=== PATIENT | female | born 1975 | race Caucasian/White ===

== ENCOUNTER 2016-12-16 14:03 | Emergency (ER) | payer OTHER ==
[2016-12-16 15:57] VITALS: BP 119/67
--- NOTE | 2016-12-16 16:15 | UC ---
Throat Pain/Nasal Nirav HPI - HPI Summary HPI Summary: ONE WEEK OF SINUS PRESSURE PAIN. HAD FLU TWO WEEKS AGO AND SINUS CONGESTION NEVER WENT AWAY. NO FEVER. PRODUCTIVE COUGH. - History of Current Complaint Chief Complaint: UCRespiratory Stated Complaint: SINUS ISSUE Time Seen by Provider: 12/16/16 15:54 Hx Obtained From: Patient Hx Last Menstrual Period: 12/16/16 Onset/Duration: Gradual Onset, Lasting Weeks, Still Present Cough: Productive Associated Signs & Symptoms: Positive: Sinus Discomfort, Nasal Discharge - Allergies/Home Medications Allergies/Adverse Reactions: Allergies Allergy/AdvReac Type Severity Reaction Status Date / Time No Known Allergies Allergy Verified 12/16/16 15:52 Home Medications: Home Medications Contol Med 1 tab DAILY 12/16/16 [History] Verapamil TAB* [[place] TAB*] 1 tab BID 12/16/16 [History Confirmed 12/16/16] PMH/Surg Hx/FS Hx/Imm Hx Previously Healthy: Yes Endocrine History Of: Reports: Thyroid Disease Denies: Diabetes Cardiovascular History Of: Denies: Hypertension, Pacemaker/ICD GI/ History Of: Denies: Renal Disease Cancer History Of: Denies: Breast Cancer - Surgical History Surgical History: Yes Surgery Procedure, Year, and Place: Corrective Urethra. Appendectomy. Tonsillectomy. C SECTION - Family History Known Family History: Negative: Respiratory Disease - Social History Occupation: Employed Full-time Lives: With Family Alcohol Use: Occasionally Substance Use Type: None Smoking Status (MU): Never Smoked Tobacco - Immunization History Most Recent Influenza Vaccination: Unk Review of Systems Constitutional: Negative Skin: Negative Eyes: Negative ENT: Nasal Discharge Respiratory: Cough Cardiovascular: Negative Gastrointestinal: Negative Genitourinary: Negative Motor: Negative Neurovascular: Negative Musculoskeletal: Negative Neurological: Negative Psychological: Negative All Other Systems Reviewed And Are Negative: Yes Physical Exam Triage Information Reviewed: Yes Appearance: Well-Appearing, No Pain Distress, Well-Nourished Vital Signs: Initial Vital Signs Temp 98 F 12/16/16 15:54 Pulse 60 12/16/16 15:54 Resp 18 12/16/16 15:54 BP 119/67 12/16/16 15:54 Pulse Ox 99 12/16/16 15:54 Vital Signs Reviewed: Yes Eye Exam: Normal Eyes: Positive: Conjunctiva Clear ENT: Positive: Hearing grossly normal, Pharynx normal, TM bulging, TM dull Dental Exam: Normal Neck exam: Normal Respiratory Exam: Normal Respiratory: Positive: Chest non-tender, Lungs clear, Normal breath sounds, No respiratory distress Cardiovascular Exam: Normal Cardiovascular: Positive: RRR, No Murmur, Pulses Normal Abdominal Exam: Normal Abdomen Description: Positive: Nontender, No Organomegaly Musculoskeletal Exam: Normal Musculoskeletal: Positive: Strength Intact, ROM Intact Neurological Exam: Normal Psychological Exam: Normal Psychological: Positive: Normal Response To Family Skin Exam: Normal Throat Pain/Nasal Course/Dx - Differential Dx/Diagnosis Differential Diagnosis/HQI/PQRI: Pharyngitis, Sinusitis, Tonsillitis, URI Provider Diagnoses: SINUSITIS Discharge - Discharge Plan Condition: Stable Disposition: HOME Prescriptions: Amoxicillin/Clavulanate TAB* [Augmentin TAB 875*] 875 mg PO BID #20 tab Fluconazole 150 MG (NF) [Diflucan 150 mg (NF)] 150 mg PO ONCE #1 tab Patient Education Materials: Sinusitis (ED) Referrals: Ray Cameron MD [Primary Care Provider] -
== END 2016-12-16 16:12 | disposition home or self-care (01) ==
LOC: UCEAST 14:03
DX: J32.9 Chronic sinusitis, unspecified (principal)
CPT/HCPCS: 99212; G0463

== ENCOUNTER 2019-02-04 13:23 | Emergency (ER) | payer OTHER ==
[2019-02-04 14:40] VITALS: BP 126/81
[2019-02-04] MEDS ORDERED: HYDROcodone/ACETAMIN 5-325 MG* 1 TAB PO ONE (16:32)
[2019-02-04] MEDS ORDERED: Ondansetron ODT TAB* 4 MG PO ONE (16:32)
--- NOTE | 2019-02-04 16:32 | UC ---
Abdominal Pain Female HPI - HPI Summary HPI Summary: 43-year-old woman comes in with a chief complaint of left flank and left abdominal pain. Pain started sudden onset yesterday while walking. Denies any trauma. Pain is quite severe. She was seen here yesterday he had a CT of her abdomen and pelvis which did not show any kidney stones or any acute process. Her urine did have some leukocytes in and she went home on ciprofloxacin she's taken 3 doses of that. Pain is now worse it's moving down into the left side of the abdomen. She says the pain feels like period cramps. Has not had a bowel movement for 2 days no dysuria. Urine culture came back with no growth. No measured fevers with the patient having chills she's actually shaking during the examination and history. Pain is worsened with some positions and slightly better was other positions. She has had a history of sciatica in the past but she has no radiation of the pain down the leg today. She's had an appendectomy. She's also had a bladder surgery when she was very young. She's had a . - History of Current Complaint Chief Complaint: UCGU Stated Complaint: LOWER BACK PAIN Time Seen by Provider: 02/04/19 15:57 Hx Last Menstrual Period: 01/22/19 Pain Intensity: 8 Allergies/Adverse Reactions: Allergies Allergy/AdvReac Type Severity Reaction Status Date / Time No Known Allergies Allergy Verified 02/04/19 14:40 PMH/Surg Hx/FS Hx/Imm Hx Previously Healthy: Yes Endocrine History: Hypothyroidism - Surgical History Surgical History: Yes Surgery Procedure, Year, and Place: Corrective Urethra. Appendectomy. Tonsillectomy. C SECTION - Family History Known Family History: Negative: Respiratory Disease - Social History Alcohol Use: Occasionally Substance Use Type: None Smoking Status (MU): Never Smoked Tobacco - Immunization History Most Recent Influenza Vaccination: Unk Review of Systems All Other Systems Reviewed And Are Negative: Yes Constitutional: Positive: Chills Skin: Positive: Negative Eyes: Positive: Negative ENT: Positive: Negative Respiratory: Positive: Negative Cardiovascular: Positive: Negative Gastrointestinal: Positive: Abdominal Pain Genitourinary: Positive: Negative Motor: Positive: Negative Neurovascular: Positive: Negative Musculoskeletal: Positive: Negative Neurological: Positive: Negative Psychological: Positive: Negative Is Patient Immunocompromised?: No Physical Exam Triage Information Reviewed: Yes Appearance: Well-Nourished, Ill-Appearing, Pain Distress - MILD/MODERATE Vital Signs: Initial Vital Signs Temp 97.8 F 02/04/19 14:35 Pulse 69 02/04/19 14:35 Resp 16 02/04/19 14:35 BP 126/81 02/04/19 14:35 Pulse Ox 99 02/04/19 14:35 Vital Signs Reviewed: Yes Eye Exam: Normal Eyes: Positive: Conjunctiva Clear Neck: Positive: Supple Respiratory: Positive: Lungs clear, Normal breath sounds, No respiratory distress Cardiovascular: Positive: RRR Abdomen Description: Positive: CVA Tenderness (L), Other: - LEFT ABD TENDER TO PALPATION Bowel Sounds: Positive: Present Musculoskeletal Exam: Normal Musculoskeletal: Positive: Strength Intact, ROM Intact Neurological Exam: Normal Neurological: Positive: Alert, Muscle Tone Normal Psychological Exam: Normal Psychological: Positive: Normal Response To Family, Age Appropriate Behavior Skin Exam: Normal Abd Pain Female Course/Dx - Course Course Of Treatment: The patient's left flank pain has worsened since yesterday. She is also having left-sided abdominal pain. She's having chills. At this time and clinic because I do not have timely labs and adequate pain control for the patient I recommended going to the emergency department for further evaluation and care. They plan to go by POV. Here in clinic it we gave her a [place] and a Tab. - Differential Dx/Diagnosis Provider Diagnosis: Left flank pain, Left sided abdominal pain Discharge - Sign-Out/Discharge Documenting (check all that apply): Patient Departure All imaging exams completed and their final reports reviewed: No Studies - Discharge Plan Condition: Stable Disposition: HOME-RECOMMEND TO ED Referrals: Ray Cameron MD [Primary Care Provider] - Additional Instructions: GO DIRECTLY TO THE EMERGENCY DEPARTMENT FOR FURTHER EVALUATION. - Billing Disposition and Condition Condition: STABLE Disposition: Home-Recommend to ED
== END 2019-02-04 16:50 | disposition home health service (06) ==
LOC: UCEAST 13:23
DX: R10.9 Unspecified abdominal pain (principal)
CPT/HCPCS: 99212; A9270-GY; G0463

== ENCOUNTER 2019-02-04 17:06 | Emergency (ER) | payer OTHER ==
[2019-02-04 17:35] LABS: Urine Appearance Cloudy; Urine Bacteria 3+ (Absent); Urine Bilirubin Negative (Negative); Urine Blood 1+ (Negative); Urine Color Yellow; Urine Glucose Negative (Negative); Urine Ketones 1+ (Negative); Urine Nitrite Negative (Negative); Urine Protein Negative (Negative); Urine Red Blood Cell 3+(>10/hpf) (Absent); Urine Specific Gravity 1.016 (1.010-1.030); Urine Squamous Epithelial Cell Present (Absent); Urine Urobilinogen Negative (Negative); Urine White Blood Cell 3+(>20/hpf) (Absent)
[2019-02-04 20:38] LABS: ABS Basophils 0 10^3/ul (0-0.2); ABS Eosinophils 0.1 10^3/ul (0-0.6); ABS Monocytes 0.5 10^3/ul (0-0.8); ABS Neutrophils 3.6 10^3/ul (1.5-7.7); ABS Nucleated RBC 0 10^3/ul; Hematocrit 40 % (33-41); Hemoglobin 13.9 g/dL (12.0-16.0); Lymphocyte % 32.5 %; Mean Corpuscular HGB Conc 35 g/dL (31-36); Mean Corpuscular Hemoglobin 33 pg (27-31); Mean Corpuscular Volume 96 fL (80-97); Mean Platelet Volume 7.6 fL (7.4-10.4); Nucleated Red Blood Cells % 0.1; Platelet Count 278 10^3/uL (150-450); Red Blood Count 4.17 10^6 /uL (3.70-4.87); Red Cell Distribution Width 12 % (10.5-15); White Blood Count 6.2 10^3/uL (3.5-10.8)
[2019-02-04 20:55] LABS: ALT 11 U/L (7-52); AST 14 U/L (13-39); Albumin 4.2 g/dL (3.2-5.2); Albumin/Globulin Ratio 1.7 (1-3); Alkaline Phosphatase 28 U/L (34-104); Anion Gap 7 mmol/L (2-11); BUN/Creatinine Ratio 11.8 (8-20); Blood Urea Nitrogen 10 mg/dL (6-24); C Reactive Protein < 1.00 mg/L (<8.01); CO2 Carbon Dioxide 23 mmol/L (22-32); Calcium 9.1 mg/dL (8.6-10.3); Chloride 106 mmol/L (101-111); EGFR African American 87.9 (>60); EGFR Non-African American 72.7 (>60); Globulin 2.5 g/dL (2-4); Glucose 85 mg/dL (70-100); Potassium 3.9 mmol/L (3.5-5.0); Sodium 136 mmol/L (135-145); Total Protein 6.7 g/dL (6.4-8.9)
[2019-02-04 21:02] LABS: HCG Pregnancy < 0.60 mIU/mL
[2019-02-04] MEDS ORDERED: Ondansetron ODT TAB* 4 MG PO ONE (23:40)
[2019-02-04] MEDS ORDERED: oxyCODONE TAB* 5 MG TAB PO ONE (23:40)
--- NOTE | 2019-02-04 23:43 | ED ---
Back Pain - HPI Summary HPI Summary: Patient complains of persistent left flank pain 2 days. Also complains of no bowel movement 2 days. Patient went to yesterday, diagnosed with UTI and given Cipro. CT abdomen and pelvis without contrast at negative. Patient states symptoms persisted and patient went back to today, was told she does not have a UTI, and she was sent to the ED for further evaluation. Pain described as constant, sharp, worse with movement. Denies history of kidney stones, ovarian cysts. Denies fever, cough, sore throat, CP, SOB, N/V/D, abdominal pain, change in urine, change in BM, vaginal symptoms. Medical history is none. Abdominal surgical history is hernia repair, , appendectomy. Pain improved with Vicodin given at . - History of Current Complaint Chief Complaint: EDFlankPain Stated Complaint: PAIN IN MY LEFT FLANK SIDE PER PT Time Seen by Provider: 02/04/19 18:57 Hx Obtained From: Patient Hx Last Menstrual Period: 01/22/19 Onset/Duration: Sudden Onset Onset/Duration: Started Days Ago Timing: Constant Severity Initially: Moderate Severity Currently: Mild Pain Intensity: 3 Pain Scale Used: 0-10 Numeric Character: Sharp Aggravating Symptom(s): Movement Alleviating Symptom(s): Rest, Position Associated Signs And Symptoms: Positive: Negative - Allergies/Home Medications Allergies/Adverse Reactions: Allergies Allergy/AdvReac Type Severity Reaction Status Date / Time No Known Allergies Allergy Verified 02/04/19 17:14 PMH/Surg Hx/FS Hx/Imm Hx Endocrine/Hematology History: Reports: Hx Thyroid Disease - on meds Denies: Hx Diabetes Cardiovascular History: Denies: Hx Hypertension, Hx Pacemaker/ICD History: Denies: Hx Renal Disease Sensory History: Denies: Hx Eye Prosthesis, Hx Hearing Aid Opthamlomology History: Denies: Hx Legally Blind EENT History: Denies: Hx Deafness Neurological History: 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 Appendectomy. Tonsillectomy. C SECTION Infectious Disease History: No Infectious Disease History: Denies: Traveled Outside the [place] in Last 30 Days - Family History Known Family History: Negative: Respiratory Disease - Social History Alcohol Use: Occasionally Substance Use Type: Reports: None Smoking Status (MU): Former Smoker Review of Systems Constitutional: Negative Eyes: Negative ENT: Negative Cardiovascular: Negative Respiratory: Negative Gastrointestinal: Negative Positive: flank pain Musculoskeletal: Negative Skin: Negative Neurological: Negative Psychological: Normal All Other Systems Reviewed And Are Negative: Yes Physical Exam - Summary Physical Exam Summary: No CVA tenderness bilaterally. Abdomen soft nontender. Lung sounds clear to auscultation bilaterally. RRR. Triage Information Reviewed: Yes Vital Signs On Initial Exam: Initial Vitals Temp Pulse Resp BP Pulse Ox 98.9 F 70 20 149/88 99 02/04/19 17:11 02/04/19 17:11 02/04/19 17:11 02/04/19 17:11 02/04/19 17:11 Vital Signs Reviewed: Yes Appearance: Positive: Well-Appearing Skin: Positive: Warm Head/Face: Positive: Normal Head/Face Inspection Eyes: Positive: Normal Neck: Positive: Supple Respiratory/Lung Sounds: Positive: Clear to Auscultation Cardiovascular: Positive: Normal Abdomen Description: Positive: Nontender Musculoskeletal: Positive: Normal Neurological: Positive: Normal Psychiatric: Positive: Normal AVPU Assessment: Alert - [place] Coma Scale Best Eye Response: 4 - Spontaneous Best Motor Response: 6 - Obeys Commands Best Verbal Response: 5 - Oriented Coma Scale Total: 15 Diagnostics - Vital Signs Vital Signs Temp Pulse Resp BP Pulse Ox 02/04/19 20:18 99.6 F 67 15 134/78 99 02/04/19 17:11 98.9 F 70 20 149/88 99 - Laboratory Lab Results: Lab Results 02/04/19 02/04/19 02/04/19 Range/Units 17:17 20:26 20:26 WBC 6.2 (3.5-10.8) 10^3/uL RBC 4.17 (3.70-4.87) 10^6 /uL Hgb 13.9 (12.0-16.0) g/dL Hct 40 (33-41) % MCV 96 (80-97) fL MCH 33 H (27-31) pg MCHC 35 (31-36) g/dL RDW 12 (10.5-15) % Plt Count 278 (150-450) 10^3/uL MPV 7.6 (7.4-10.4) fL Neut % (Auto) 57.2 % Lymph % (Auto) 32.5 % [place] % (Auto) 7.7 % Eos % (Auto) 2.0 % Baso % (Auto) 0.6 % Absolute Neuts (auto) 3.6 (1.5-7.7) 10^3/ul Absolute Lymphs (auto) 2.0 (1.0-4.8) 10^3/ul Absolute Monos (auto) 0.5 (0-0.8) 10^3/ul Absolute Eos (auto) 0.1 (0-0.6) 10^3/ul Absolute Basos (auto) 0 (0-0.2) 10^3/ul Absolute Nucleated RBC 0 10^3/ul Nucleated RBC % 0.1 Sodium 136 (135-145) mmol/L Potassium 3.9 (3.5-5.0) mmol/L Chloride 106 (101-111) mmol/L Carbon Dioxide 23 (22-32) mmol/L Anion Gap 7 (2-11) mmol/L BUN 10 (6-24) mg/dL Creatinine 0.85 (0.51-0.95) mg/dL Est GFR ( Amer) 87.9 (>60) Est GFR (Non-Af Amer) 72.7 (>60) BUN/Creatinine Ratio 11.8 (8-20) Glucose 85 (70-100) mg/dL Calcium 9.1 (8.6-10.3) mg/dL Total Bilirubin 0.60 (0.2-1.0) mg/dL AST 14 (13-39) U/L ALT 11 (7-52) U/L Alkaline Phosphatase 28 L (34-104) U/L C-Reactive Protein < 1.00 (<8.01) mg/L Total Protein 6.7 (6.4-8.9) g/dL Albumin 4.2 (3.2-5.2) g/dL Globulin 2.5 (2-4) g/dL Albumin/Globulin Ratio 1.7 (1-3) Beta HCG, Quant < 0.60 mIU/mL Urine Color Yellow Urine Appearance Cloudy Urine pH 5.0 (5-9) Ur Specific [place] 1.016 (1.010-1.030) Urine Protein Negative (Negative) Urine Ketones 1+ A (Negative) Urine Blood 1+ A (Negative) Urine Nitrate Negative (Negative) Urine Bilirubin Negative (Negative) Urine Urobilinogen Negative (Negative) Ur Leukocyte Esterase 3+ A (Negative) Urine WBC (Auto) 3+(>20/hpf) A (Absent) Urine RBC (Auto) 3+(>10/hpf) A (Absent) Ur Squamous Epith Cells Present A (Absent) Urine Bacteria 3+ A (Absent) Urine Glucose Negative (Negative) Result Diagrams: 02/04/19 20:26 02/04/19 20:26 Lab Statement: Any lab studies that have been ordered have been reviewed, and results considered in the medical decision making process. Back Pain Course/Dx - Course Course Of Treatment: Patient complains of persistent left flank pain 2 days. Also complains of no bowel movement 2 days. Patient went to yesterday, diagnosed with UTI and given Cipro. CT abdomen and pelvis without contrast at negative. Patient states symptoms persisted and patient went back to today, was told she does not have a UTI, and she was sent to the ED for further evaluation. Pain described as constant, sharp, worse with movement. Denies history of kidney stones, ovarian cysts. Denies fever, cough, sore throat, CP, SOB, N/V/D, abdominal pain, change in urine, change in BM, vaginal symptoms. Medical history is none. Abdominal surgical history is hernia repair, , appendectomy. Pain improved with Vicodin given at . Physical exam:No CVA tenderness bilaterally. Abdomen soft nontender. Lung sounds clear to auscultation bilaterally. RRR. Vital signs within normal limits. Labs unremarkable. UA possible UTI, cultures pending. CT of abdomen and pelvis without contrast from 02/03/19 negative. Pelvic ultrasound and transvaginal ultrasound unremarkable. KUB positive for moderate stool. Diagnosis flank pain , UTI, constipation. Continue taking Cipro. Magnesium citrate for constipation. Patient understands and improves with plan. - Diagnoses Provider Diagnoses: Left flank pain, Constipation, UTI (urinary tract infection) Discharge - Sign-Out/Discharge Documenting (check all that apply): Patient Departure Patient Received Moderate/Deep Sedation with Procedure: No - Discharge Plan Condition: Stable Disposition: HOME Prescriptions: HYDROcodone/ACETAMIN 5-325 MG* [[place] 5-325 TAB*] 1 tab PO Q8H PRN 2 Days #6 tab MDD 3 tabs PRN Reason: Pain Ondansetron ODT TAB* [Zofran 4 MG Odt TAB*] 4 mg PO Q8H PRN 4 Days #14 tab.odt PRN Reason: Nausea Patient Education Materials: Constipation (ED), Flank Pain (ED) Referrals: Ray Cameron MD [Primary Care Provider] - Dennis Almanzar DO [Doctor of Osteopathy] - Additional Instructions: Continue taking Cipro as directed. For pain control you may also alternate ibuprofen 600 mg with Tylenol 650 mg every 3 hours. Try half a bottle of magnesium citrate available at your pharmacy for constipation. If symptoms persist follow-up with GI Dr. Denton for further evaluation. Return to the ED for any new or worsening symptoms. - Billing Disposition and Condition Condition: STABLE Disposition: Home
[2019-02-05 00:10] VITALS: BP 158/92
== END 2019-02-05 00:09 | disposition home or self-care (01) ==
LOC: ED 17:06
DX: R10.32 Left lower quadrant pain (principal); R10.2 Pelvic and perineal pain; K59.00 Constipation, unspecified; N39.0 Urinary tract infection, site not specified; E07.9 Disorder of thyroid, unspecified; Q76.0 Spina bifida occulta; Z90.89 Acquired absence of other organs; Z87.891 Personal history of nicotine dependence
CPT/HCPCS: 36415; 74018; 76856; 80053; 81003; 81015; 84702; 85025; 86140; 87086; 99282; A9270-GY

== ENCOUNTER 2019-04-01 20:35 | Emergency (ER) | payer OTHER ==
[2019-04-01 20:43] VITALS: BP 141/84
--- NOTE | 2019-04-01 21:18 | UC ---
Complaint Female HPI - HPI Summary HPI Summary: 43-year-old female presents with onset of dysuria, frequency, and urgency today. Denies fever, chills, abdominal pain, nausea, vomiting, back or flank pain, hematuria, vaginal discharge, dyspareunia, or abnormal bleeding. - History Of Current Complaint Chief Complaint: UCGU Stated Complaint: POSS UTI Hx Obtained From: Patient Hx Last Menstrual Period: 1 WEEK AGO Pain Intensity: 0 - Allergies/Home Medications Allergies/Adverse Reactions: Allergies Allergy/AdvReac Type Severity Reaction Status Date / Time No Known Allergies Allergy Verified 04/01/19 20:42 Home Medications: Home Medications Control* 1 tab PO DAILY 04/01/19 [History Confirmed 04/01/19] PMH/Surg Hx/FS Hx/Imm Hx Endocrine History: Hypothyroidism - Surgical History Surgical History: Yes Surgery Procedure, Year, and Place: Corrective Urethra. Appendectomy. Tonsillectomy. C SECTION - Family History Known Family History: Positive: Non-Contributory - Social History Occupation: Employed Full-time Lives: With Family Alcohol Use: Occasionally Substance Use Type: None Smoking Status (MU): Former Smoker - Immunization History Most Recent Influenza Vaccination: Unk Review of Systems All Other Systems Reviewed And Are Negative: Yes Constitutional: Negative: Fever, Chills Respiratory: Positive: Negative Cardiovascular: Positive: Negative Gastrointestinal: Negative: Abdominal Pain, Vomiting, Diarrhea, Nausea Genitourinary: Positive: Dysuria, Frequency, Urgency. Negative: Hematuria, Vaginal/Penile Burning, Vaginal/Penile Itching, Vaginal/Penile Discharge, Ulceration/Lesion, Abnormal Bleeding Musculoskeletal: Positive: Negative Neurological: Positive: Negative Is Patient Immunocompromised?: No Physical Exam - Summary Physical Exam Summary: GENERAL APPEARANCE: Well developed, well nourished, alert and cooperative, and appears to be in no acute distress. CARDIAC: Normal S1 and S2. No S3, S4 or murmurs. Rhythm is regular. There is no peripheral edema, cyanosis or pallor. Extremities are warm and well perfused. Capillary refill is less than 2 seconds. Peripheral pulses intact. LUNGS: Clear to auscultation without rales, rhonchi, wheezing or diminished breath sounds. ABDOMEN: Positive bowel sounds. Soft, nondistended, nontender. No guarding or rebound. No masses or hepatosplenomegally. No CVA tenderness. MUSKULOSKELETAL: ROM intact to all extremities. No joint erythema or tenderness. Normal muscular development. Normal gait. SKIN: Skin normal color, texture and turgor with no lesions or eruptions. Triage Information Reviewed: Yes Vital Signs: Initial Vital Signs Temp 97.6 F 04/01/19 20:39 Pulse 71 04/01/19 20:39 Resp 16 04/01/19 20:39 BP 141/84 04/01/19 20:39 Pulse Ox 100 04/01/19 20:39 Vital Signs Reviewed: Yes Complaint Female Dx - Course Course Of Treatment: 43-year-old female presents with onset of dysuria, frequency, and urgency today. Denies fever, chills, abdominal pain, nausea, vomiting, back or flank pain, hematuria, vaginal discharge, dyspareunia, or abnormal bleeding. Afebrile. Vital signs stable. Exam was overall unremarkable. [id number] urinalysis showed 1+ leukocyte esterase and 2+ blood. Urine culture is pending. We'll treat her empirically for a urinary tract infection with Bactrim DS 1 tablet twice a day 5 days and provided her with Pyridium 100 mg 3 times a day 2 days for discomfort. She was given first dose of each of these in the clinic and provided with a test for in the morning until she can fill her prescriptions. She is to follow-up with her primary care provider in 3-5 days if symptoms are not improving. Anticipatory guidance and warning symptoms were reviewed with the patient. Verbalizes understanding and agrees with plan of care. - Differential Dx/Diagnosis Differential Diagnosis/HQI/PQRI: Urinary Tract Infection Provider Diagnosis: UTI (urinary tract infection) Discharge - Sign-Out/Discharge Documenting (check all that apply): Patient Departure All imaging exams completed and their final reports reviewed: No Studies - Discharge Plan Condition: Stable Disposition: HOME Prescriptions: Fluconazole [Diflucan 150 MG (NF)] 150 mg PO ONCE #1 tab Phenazopyridine TAB* [Pyridium 100 mg TAB*] 100 mg PO TID #4 tab Sulfamethox/Trimethoprim DS* [Bactrim DS 800/160 TAB*] 1 tab PO BID #8 tab Patient Education Materials: Urinary Tract Infection in Women (ED) Referrals: Ray Cameron MD [Primary Care Provider] - 3 Days Additional Instructions: Your urine test in the clinic today is suggestive of a urinary tract infection. We will start you on an antibiotic to treat for the infection. We will also send a urine culture today to see what bacteria grow out and make sure the antibiotic you were prescribed is appropriate to treat the infection. It will take 48-72 hours to get these results. We will contact you if there is any change in your treatment plan. Start Bactrim DS 1 tablet by mouth twice a day for 5 days. You were given the first dose in the clinic. Take Pyridium 1 tablet every 8 hours for next 2 days to help with the discomfort. This medication will turn your urine an orange color. You were given the first dose in the clinic. Drink plenty of fluids. To help prevent urinary tract infections: 1) Be sure to wipe from front to back. 2) Urinate immediately after any sexual intercourse. 3) Avoid taking bubble baths. Follow up with your primary care provider in 3-5 days if symptoms persist. Seek immediate medical attention in the emergency room if you develop fever greater than 100.5 F, have severe abdominal pain, persistent vomiting, or any worsening of symptoms. - Billing Disposition and Condition Condition: STABLE Disposition: Home - Attestation Statements Provider Attestation: Per institutional requirements, I have reviewed the chart, however, I was not consulted specifically or made aware of this patient by the midlevel provider. I did not personally evaluate, interact with , or disposition this patient.
[2019-04-01] MEDS ORDERED: Phenazopyridine TAB* 100 MG PO ONE (21:21)
[2019-04-01] MEDS ORDERED: Sulfamethox/Trimethoprim DS 800/160* TAB PO ONE (21:21)
== END 2019-04-01 21:30 | disposition home or self-care (01) ==
LOC: UCEAST 20:35
DX: N39.0 Urinary tract infection, site not specified (principal); R30.0 Dysuria; R35.0 Frequency of micturition; R39.15 Urgency of urination; E03.9 Hypothyroidism, unspecified; Z87.891 Personal history of nicotine dependence
CPT/HCPCS: 81003; 87086; 99213; A9270-GY; G0463